=== PATIENT | male | born 1965 | race Caucasian/White ===

== ENCOUNTER 2018-04-27 16:44 | Observation (INO) ==
[2018-04-27] MEDS ORDERED: Sod Chloride 0.9% Inj 1,000 ML IV.SIG ONE (18:01)
[2018-04-27] MEDS ORDERED: Morphine Inj 4 MG/ML Vial IV.PUSH ONE ×2 (18:01→20:37)
[2018-04-27 18:55] LABS: Baso # (Auto) 0.2 th/mm3 (0.0-0.2); Baso % (Auto) 1.9 % (0.0-2.0); Eos % (Auto) 0.1 % (0.0-4.0); Hematocrit 48.3 % (39.0-51.0); Hemoglobin 15.9 gm/dL (13.0-17.0); Lymph # (Auto) 0.8 th/mm3 (1.0-4.8); Mean Corpuscular HGB Conc 32.9 % (32.0-36.0); Mean Corpuscular Hemoglobin 28.2 pg (27.0-34.0); Mean Corpuscular Volume 85.7 fL (80.0-100.0); Mean Platelet Volume 9.5 fL (7.0-11.0); Mono # (Auto) 0.4 th/mm3 (0.0-0.9); Mono % (Auto) 3.5 % (0.0-8.0); Neut # (Auto) 10.5 th/mm3 (1.8-7.7); Neut % (Auto) 87.5 % (16.0-70.0); Platelet Count 231 th/mm3 (150-450); Red Blood Count 5.63 mil/mm3 (4.50-5.90); Red Cell Distribution Width 12.3 % (11.6-17.2); White Blood Count 11.9 th/mm3 (4.0-11.0)
[2018-04-27 19:04] LABS: Chloride 104 meq/L (98-107); Sodium 136 meq/L (136-145)
[2018-04-27 19:07] LABS: Calcium 8.9 mg/dL (8.5-10.1)
[2018-04-27 19:08] LABS: Albumin 4.4 g/dL (3.4-5.0); Anion Gap 9 meq/L (5-15); Blood Urea Nitrogen 22 mg/dL (7-18); Carbon Dioxide 23.1 meq/L (21.0-32.0); Glucose,Random 98 mg/dL (74-106); Lipase 94 U/L (73-393); Magnesium 2.3 mg/dL (1.5-2.5)
[2018-04-27 19:11] LABS: Alanine Aminotransferase 70 U/L (12-78); Aspartate Aminotransferase 38 U/L (15-37); Glomerular Filtration Rate 79 mL/min (>89)
[2018-04-27 19:12] LABS: Total Protein 7.9 g/dL (6.4-8.2)
[2018-04-27 19:13] LABS: Alkaline Phosphatase 80 U/L (45-117)
--- NOTE | 2018-04-27 19:17 | ED ---
HPI General Chief Complaint: Abdominal Pain Stated Complaint: abd pain Xthis morning/vomiting Time Seen by Provider: 04/27/18 19:05 Source: patient and family Mode of arrival: ambulatory Limitations: no limitations History of Present Illness HPI narrative: 52-year-old male presents to the emergency department for grossly worsening generalized abdominal pain radiating to the right lower quadrant onset since 2 AM. One episode of vomiting bilious emesis no feculent emesis no coffee-ground emesis no hematemesis. No constipation or diarrhea. No fever mild chills. Some anorexia with decreased oral intake. Prior cholecystectomy 5 years ago and has had previous knee surgery. Patient takes no prescription medications other than had a leftover Lortab from dental work before and took a one-time Lortab without symptom. Patient has noted some discomfort with movement. No history of reported colitis diverticulitis and still has his appendix. No dysuria frequency or urgency. Patient has had previous kidney stone but states no flank pain or hematuria. Patient denies other concerns or complaints. Patient was placed on monitor IV access obtained specimens collected and sent for resulting denies any chest pain or shortness of breath or sweats. complaint: Reports abdominal pain Onset (ago): hour(s) Pain Consistency: constant Location: Reports diffuse Severity: moderate Severity scale (1-10): 5 Quality: Reports aching Radiation: Reports RLQ Migration to: Reports RLQ Relieving factors: nothing Exacerbating factors: movement Context: Denies foreign travel, possible food poisoning, sick contacts, recent antibiotic use, recent surgery/procedure, recent injury and history of similar episodes Associated symptoms: Reports nausea, vomiting (x1 bile), chills and anorexia; Denies diarrhea, fever, constipation, dysuria, hematemesis, hematochezia, melena , hematuria and syncope Treatments prior to arrival: Denies NSAIDs, prescription analgesics and antacids Related Data Home Medications Medication Instructions Recorded Confirmed No Known Home Medications 04/27/18 04/27/18 Allergies Allergy/AdvReac Type Severity Reaction Status Date / Time No Known Allergies Allergy Verified 04/27/18 17:07 Review of Systems ROS: all other systems reviewed are negative [facility] Medical History Medical History Patient denies medical problems (Acute) Surgical History Surgical History Hx of cholecystectomy (Acute) Hx of knee surgery (Acute) Social History Social History Substance History: No History of Abuse Second Hand Smoke Exposure: No Smoking Status: Never smoker How Often Do You Have a Drink Containing Alcohol: 2 to 3 times a week Recent Travel in [facility] within the Last 8 Weeks: No Recent Out of Country Travel within the Last 8 Weeks: No Immunization History Tetanus Immunization: Unsure Exam Narrative Exam Narrative: GENERAL: Well-nourished, well-developed patient. SKIN: Focused skin assessment warm/dry. HEAD: Normocephalic. EYES: No scleral icterus. No injection or drainage. NECK: Supple, trachea midline. No JVD or lymphadenopathy. CARDIOVASCULAR: Regular rate and rhythm without murmurs, gallops, or rubs. RESPIRATORY: Breath sounds equal bilaterally. No accessory muscle use. GASTROINTESTINAL: Abdomen soft, mildly diffusely tender with localizing to right lower quadrant without guarding or rebound, nondistended. MUSCULOSKELETAL: No cyanosis, or edema. BACK: Nontender without obvious deformity. No CVA tenderness. Course Initial Documented Vital Signs Temperature 97.9 F 04/27/18 17:03 Pulse Rate 65 04/27/18 17:03 Respiratory Rate 16 04/27/18 17:03 Blood Pressure 164/94 H 04/27/18 17:03 Pulse Oximetry 99 04/27/18 17:03 Last Documented Vital Signs Temperature 97.9 F 04/27/18 17:03 Pulse Rate 74 04/27/18 17:07 Respiratory Rate 14 04/27/18 17:07 Blood Pressure 148/87 H 04/27/18 17:07 Pulse Oximetry 95 04/27/18 17:07 Medical Decision Making [facility] Narrative Medical decision making narrative: 52-year-old male presents to the emergency department for grossly worsening generalized abdominal pain radiating to the right lower quadrant onset since 2 AM. One episode of vomiting bilious emesis no feculent emesis no coffee-ground emesis no hematemesis. No constipation or diarrhea. No fever mild chills. Some anorexia with decreased oral intake. Prior cholecystectomy 5 years ago and has had previous knee surgery. Patient takes no prescription medications other than had a leftover Lortab from dental work before and took a one-time Lortab without symptom. Patient has noted some discomfort with movement. No history of reported colitis diverticulitis and still has his appendix. No dysuria frequency or urgency. Patient has had previous kidney stone but states no flank pain or hematuria. Patient denies other concerns or complaints. Patient was placed on monitor IV access obtained specimens collected and sent for resulting denies any chest pain or shortness of breath or sweats. White count is minimally elevated with left shift chemistries urinalysis and CT abdomen pelvis have been ordered and patient has been ordered fluids pain medication and antiemetic. At 7:[address] abdomen pelvis is consistent with acute appendicitis no evidence of perforation or periappendiceal abscess 14 mm standing is noted; white count is 11,900 with 87% neutrophils bicarb is normal at 23 mild renal insufficiency with BUN of 22. Patient administered Zosyn has already received previously ordered morphine and Zofran; discussed with Dr Grant send to [facility] M/S to his service; patient and family informed of diagnosis based on his exam labs and positive CT abdomen pelvis for acute appendicitis with plan to transfer patient to [facility] for appendectomy with Dr. Grant, patient and family's questions have been answered to their satisfaction. Medical Screen Exam Complete: Yes Emergency Medical Condition: Yes Differential Diagnosis Differential Diagnosis: Abdominal pain, appendicitis, colitis, diverticulitis, atypical renal colic Medical Records Medical records reviewed: Yes I reviewed the patient's medical records. Lab Data Lab results reviewed: Yes I reviewed the patient's lab results. Result diagrams: 04/27/18 18:31 04/27/18 18:31 Lab Results 04/27/18 04/27/18 Range/Units 18:31 18:31 CBC w Diff Auto diff final WBC 11.9 H (4.0-11.0) th/mm3 RBC 5.63 (4.50-5.90) mil/mm3 Hgb 15.9 (13.0-17.0) gm/dL Hct 48.3 (39.0-51.0) % MCV 85.7 (80.0-100.0) fL MCH 28.2 (27.0-34.0) pg MCHC 32.9 (32.0-36.0) % RDW 12.3 (11.6-17.2) % Plt Count 231 (150-450) th/mm3 MPV 9.5 (7.0-11.0) fL Neut % (Auto) 87.5 H (16.0-70.0) % Lymph % (Auto) 7.0 L (9.0-44.0) % [place] % (Auto) 3.5 (0.0-8.0) % Eos % (Auto) 0.1 (0.0-4.0) % Baso % (Auto) 1.9 (0.0-2.0) % Neut # (Auto) 10.5 H (1.8-7.7) th/mm3 Lymph # (Auto) 0.8 L (1.0-4.8) th/mm3 [place] # (Auto) 0.4 (0.0-0.9) th/mm3 Eos # (Auto) 0.0 (0.0-0.4) th/mm3 Baso # (Auto) 0.2 (0.0-0.2) th/mm3 WBC Differential . Differential Comment . Sodium 136 (136-145) meq/L Potassium 4.6 (3.5-5.1) meq/L Chloride 104 (98-107) meq/L Carbon Dioxide 23.1 (21.0-32.0) meq/L Anion Gap 9 (5-15) meq/L BUN 22 H (7-18) mg/dL Creatinine 1.00 (0.60-1.30) mg/dL Estimated GFR 79 L (>89) mL/min Random Glucose 98 (74-106) mg/dL Calcium 8.9 (8.5-10.1) mg/dL Magnesium 2.3 (1.5-2.5) mg/dL Total Bilirubin 1.1 H (0.2-1.0) mg/dL AST 38 H (15-37) U/L ALT 70 (12-78) U/L Alkaline Phosphatase 80 (45-117) U/L Total Protein 7.9 (6.4-8.2) g/dL Albumin 4.4 (3.4-5.0) g/dL Lipase 94 (73-393) U/L Imaging Data My impression: reviewed by me and discussed with surgeon radiologist's reading Radiologist's impression: Abdomen/Pelvis CT 04/27/18 18:01 CONCLUSION: 1. Findings consistent with acute appendicitis. No evidence for perforation or periappendiceal abscess at this time. 2. Prominent diffusely decreased hepatic attenuation consistent with prominent hepatic steatosis. ECG Data EKG Prior to Arrival: No Attestation: I personally reviewed and interpreted this ECG as follows: (EKG: Normal sinus rhythm rate 86 normal axis and intervals no acute ST elevation injury pattern or ectopy noted.) Discharge Plan Discharge Disposition Patient Disposition: ED Admit(ED Internal Use Only) Discharge Condition Condition: Stable Discharge Order Discharge Orders: ED Use Only Admit Order (Routine); Ordered 04/27/18 Ordered By: Jaky Morin Discharge Details Diagnosis: Acute appendicitis Physicians Team ED Provider: Jaky Morin Primary Care Provider: Anant Bills Rxs /Orders / Referrals /Forms Prescriptions: No Action No Known Home Medications RF: 0 Status ED Status: With Doctor
[2018-04-27 19:18] LABS: Potassium 4.6 meq/L (3.5-5.1)
--- NOTE | 2018-04-27 19:18 | CT ---
EXAM DATE: 04/27/2018 7:12 PM EST AGE/SEX: 52 years / Male INDICATIONS: Diffuse abdomen pain, greater on the right side with nausea and vomiting. CLINICAL DATA: This is the patient's initial encounter. Patient reports that signs and symptoms have been present for 1 day and indicates a pain score of 10/10. MEDICAL/SURGICAL HISTORY: None. None. ORAL CONTRAST: No oral contrast ingested. RADIATION DOSE: 19.75 CTDI (mGy) COMPARISON: No prior exams available for comparison. TECHNIQUE: Multiple contiguous axial images were obtained through the abdomen and pelvis following b olus infusion of 95 ml Omnipaque 350 (iohexol) nonionic water-soluble contrast as a single exam dos e. No oral contrast ingested. Using automated exposure control and adjustment of the mA and/or kV ac cording to patient size, radiation dose was kept as low as reasonably achievable to obtain optimal di agnostic quality images. DICOM format image data is available electronically for review and comparis on. FINDINGS: LOWER LUNGS: The visualized lower lungs are clear. LIVER: Prominent diffusely decreased hepatic attenuation without significant volume loss. Gallbladde r is surgically absent. No significant biliary ductal dilatation. SPLEEN: Homogeneous density without enlargement. PANCREAS: Unremarkable without mass or calcification. KIDNEYS: Kidneys demonstrate symmetrical enhancement and are symmetrical in size without evidence fo r radiopaque renal calculi or hydronephrosis. Small subcentimeter hypodense cystic lesions are too sm all to fully characterize bilaterally. ADRENAL GLANDS: Unremarkable. AORTA: Katheryn-aneurysmal. BOWEL/MESENTERY: Appendix is dilated measuring up to 14 mm with very mild periappendiceal stranding. No regional drainable fluid collections. Bowel loops are otherwise unremarkable without evidence for obstruction. No free fluid or drainable fluid collections. No pneumatosis or free air. ABDOMINAL WALL: Intact. RETROPERITONEUM: No evidence of adenopathy in the retrocrural, para-aortic, or deep pelvic regions. BLADDER: Contours are smooth. REPRODUCTIVE: No abnormal masses or calcifications seen. BONY STRUCTURES: Unremarkable. CONCLUSION: 1. Findings consistent with acute appendicitis. No evidence for perforation or periappendiceal absce ss at this time. 2. Prominent diffusely decreased hepatic attenuation consistent with prominent hepatic steatosis. Electronically signed by: Emir Alanis MD Board Certified Radiologist 04/27/2018 7:17 PM EST
[2018-04-27] MEDS ORDERED: Piperacil/Tazo 4.5 GM Premix 4.5 GM/100 ML BAG IV.SIG SCH (19:30)
[2018-04-27] MEDS: Sod Chloride 0.9% Inj 1,000 ML IV.CONT SCH (19:47)
[2018-04-27 20:42] LABS: Bilirubin,Urine Negative (Negative); Clarity,Urine Clear (Clear); Color,Urine Yellow (Yellw/Straw); Glucose,Urine (UA) Negative (Negative); Leukocyte Esterase,Urine Negative (Negative); Nitrite,Urine Negative (Negative); PH,Urine 5.5 (5.0-8.5); Specific Gravity,Urine Less/Equal 1.005 (1.002-1.035); Urobilinogen,Urine 0.2 mg/dL (Less than 2)
[2018-04-27 20:47] LABS: Squamous Epithelial Cell,Urine 0-5 /hpf (0-5)
[2018-04-28] MEDS ORDERED: Morphine Inj 4 MG/ML Vial IV.PUSH ONE (01:32)
[2018-04-28] MEDS ORDERED: Sodium Chlor 0.9% Inj 500 ML IV.CONT ONE (03:30)
[2018-04-28] MEDS ORDERED: Chlorhexidine Gluconate 2% 1 Pack (2 Cloths) TOPICAL ONE (03:30)
[2018-04-28] MEDS: Piperacil/Tazo 4.5 GM Premix 4.5 GM/100 ML BAG IV.SIG SCH ×3 (06:16→20:45)
[2018-04-28] MEDS: HYDROmorphone PF Inj 2 MG/ML Vial IV.PUSH SCH ×4 (08:34→20:45)
--- NOTE | 2018-04-28 08:40 | P.HPGS ---
History of Present Illness Service: General Surgery Primary Care Physician: Anant Bills MD Chief Complaint: Abdominal pain History of Present Illness: This is a 52 with no significant past medical history who reported to the emergency department with right lower quadrant pain that began around 2 AM on Tuesday. He does report associated nausea and vomiting. He does report associated fevers and chills. The patient had a CT abdomen/pelvis with findings consistent with acute appendicitis. The patient's white blood cell count is 11.9. A General Surgery admission is been requested. - Diagnosis (1) Acute appendicitis Review of Systems All other systems reviewed negative except as stated in [facility] - History History Provided By: Patient - Medical History Medical History: Medical History (Last Reviewed 04/28/18 @ 08:37 by ALEXIA Rendon) Patient denies medical problems - Surgical History Surgical History: Surgical History (Last Reviewed 04/28/18 @ 08:37 by ALEXIA Rendon) Hx of cholecystectomy Hx of knee surgery - Tobacco History Second Hand Smoke Exposure: No Smoking Status: Never smoker - Alcohol History How Often Do You Have a Drink Containing Alcohol: 2 to 3 times a week - Substance Use History Substance History: No History of Abuse - Travel History Recent Travel in the [place] Within the Last 8 Weeks: No Recent Travel Out of the Country Within the Last 8 Weeks: No - Immunization History Tetanus Immunization: Unsure Hx Influenza Vaccine This Season: No Medications and Allergies Allergies Allergy/AdvReac Type Severity Reaction Status Date / Time No Known Allergies Allergy Verified 04/27/18 17:07 Home Medications Medication Instructions Recorded Confirmed Type No Known Home Medications 04/27/18 04/27/18 History Active Medications: Active Medications Hydromorphone HCl (Dilaudid Pf Inj) 1 mg IV.PUSH Q4H CEASAR Last Admin: 04/28/18 08:34 Dose: 1 mg Sodium Chloride (Ns Inj) 1,000 mls @ 125 mls/hr IV.CONT .Q8H CEASAR Last Admin: 04/27/18 19:47 Dose: 125 mls/hr Lactated Ringer's (Lr 1000 Ml Inj) 1,000 mls @ 30 mls/hr IV.CONT .Q24H ONE Stop: 04/29/18 03:29 Sodium Chloride (Ns Inj) 500 mls @ 30 mls/hr IV.CONT .[id number] ONE Stop: 04/28/18 20:09 Piperacillin/Tazobactam/Dextrose (Zosyn 4.5 Gm Premix) 4.5 gm in 100 mls @ 200 mls/hr IV.SIG Q8H [facility] Last Infusion: 04/28/18 08:34 Dose: Infused Sodium Chloride (Ns Flush) 2 ml IV.FLUSH PRN PRN PRN Reason: FLUSH AFTER USING IV ACCESS Exam Vital signs: Vital Signs 04/27/18 17:03 04/27/18 17:07 04/27/18 19:52 Temperature 97.9 F Pulse Rate 65 74 64 Respiratory Rate 16 14 15 Blood Pressure 164/94 H 148/87 H 149/82 H Pulse Oximetry 99 95 98 04/27/18 20:51 04/28/18 01:23 04/28/18 02:28 Temperature 98.8 F 99.7 F H Pulse Rate 91 H 83 93 H Respiratory Rate 18 15 18 Blood Pressure 148/77 H 146/93 H 156/85 H Pulse Oximetry 98 97 99 Intake & Output 04/27/18 04/28/18 04/28/18 18:59 06:59 18:59 Intake Total 1100 / 1100 100 / 100 Balance 1100 / 1100 100 / 100 Weight 89.5 kg 89.5 kg Intake: IV 1100 / 1100 100 / 100 Zosyn 4.5 GM Premix 4.5 gm In 100 / 100 100 / 100 100 ml @ 200 mls/hr IV.SIG Q8H [facility] Rx#:[id number] NS Inj 1,000 ML @ Wide Open IV. 1000 / 1000 SIG BOLUS ONE Rx#:[id number] Oral 0 / 0 Other: Date of Last Bowel Movement 04/27/18 Weight On Admission 90.1 kg Narrative: GENERAL: Pleasant 52 year old male resting in bed in no acute distress. SKIN: Warm and dry. HEAD: Atraumatic. Normocephalic. EYES: Pupils equal and round. No scleral icterus. No injection or drainage. ENT: No nasal bleeding or discharge. Mucous membranes pink and moist. NECK: Trachea midline. CARDIOVASCULAR: Regular rate and rhythm. RESPIRATORY: No accessory muscle use. Clear to auscultation. Breath sounds equal bilaterally. GASTROINTESTINAL: Abdomen soft, mildly distended. Tender in RLQ to palpation. Small reducible umbilical hernia. MUSCULOSKELETAL: Extremities without clubbing, cyanosis, or edema. No obvious deformities. NEUROLOGICAL: Awake and alert. No obvious cranial nerve deficits. Motor grossly within normal limits. Five out of 5 muscle strength in the arms and legs. Normal speech. PSYCHIATRIC: Appropriate mood and affect; insight and judgment normal. Results - Labs 04/27/18 18:31 04/27/18 18: Laboratory Results CBC w Diff Auto diff final 04/27/18 18: WBC 11.9 th/mm3 (4.0-11.0) H 04/27/18 18: RBC 5.63 mil/mm3 (4.50-5.90) 04/27/18 18: Hgb 15.9 gm/dL (13.0-17.0) 04/27/18 18: Hct 48.3 % (39.0-51.0) 04/27/18 18: MCV 85.7 fL (80.0-100.0) 04/27/18 18: MCH 28.2 pg (27.0-34.0) 04/27/18 18: MCHC 32.9 % (32.0-36.0) 04/27/18 18: RDW 12.3 % (11.6-17.2) 04/27/18 18: Plt Count 231 th/mm3 (150-450) 04/27/18 18: MPV 9.5 fL (7.0-11.0) 04/27/18 18: Neut % (Auto) 87.5 % (16.0-70.0) H 04/27/18 18: Lymph % (Auto) 7.0 % (9.0-44.0) L 04/27/18 18: [place] % (Auto) 3.5 % (0.0-8.0) 04/27/18 18: Eos % (Auto) 0.1 % (0.0-4.0) 04/27/18 18: Baso % (Auto) 1.9 % (0.0-2.0) 04/27/18 18: Neut # (Auto) 10.5 th/mm3 (1.8-7.7) H 04/27/18 18: Lymph # (Auto) 0.8 th/mm3 (1.0-4.8) L 02/14/19 18:31 [place] # (Auto) 0.4 th/mm3 (0.0-0.9) 04/27/18 18:31 Eos # (Auto) 0.0 th/mm3 (0.0-0.4) 04/27/18 18:31 Baso # (Auto) 0.2 th/mm3 (0.0-0.2) 04/27/18 18:31 WBC Differential . 04/27/18 18:31 Differential Comment . 04/27/18 18:31 Sodium 136 meq/L (136-145) 04/27/18 18:31 Potassium 4.6 meq/L (3.5-5.1) 04/27/18 18:31 Chloride 104 meq/L (98-107) 04/27/18 18:31 Carbon Dioxide 23.1 meq/L (21.0-32.0) 04/27/18 18:31 Anion Gap 9 meq/L (5-15) 04/27/18 18:31 BUN 22 mg/dL (7-18) H 04/27/18 18:31 Creatinine 1.00 mg/dL (0.60-1.30) 04/27/18 18:31 Estimated GFR 79 mL/min (>89) L 04/27/18 18:31 Random Glucose 98 mg/dL (74-106) 04/27/18 18:31 Calcium 8.9 mg/dL (8.5-10.1) 04/27/18 18:31 Magnesium 2.3 mg/dL (1.5-2.5) 04/27/18 18:31 Total Bilirubin 1.1 mg/dL (0.2-1.0) H 04/27/18 18:31 AST 38 U/L (15-37) H 04/27/18 18:31 ALT 70 U/L (12-78) 04/27/18 18:31 Alkaline Phosphatase 80 U/L (45-117) 04/27/18 18:31 Total Protein 7.9 g/dL (6.4-8.2) 04/27/18 18:31 Albumin 4.4 g/dL (3.4-5.0) 04/27/18 18:31 Lipase 94 U/L (73-393) 04/27/18 18:31 Urine Color Yellow (Yellw/Straw) 04/27/18 19:55 Urine Clarity Clear (Clear) 04/27/18 19:55 Urine pH 5.5 (5.0-8.5) 04/27/18 19:55 Ur Specific [place] Less/equal 1.005 (1.002-1.035) 04/27/18 19:55 Urine Protein Negative mg/dL (Neg-Trace) 04/27/18 19:55 Urine Glucose (UA) Negative mg/dL (Negative) 04/27/18 19:55 Urine Ketones 80 or greater mg/dL (Negative) H 04/27/18 19:55 Urine Occult Blood Negative (Negative) 04/27/18 19:55 Urine Nitrate Negative (Negative) 04/27/18 19:55 Urine Bilirubin Negative (Negative) 04/27/18 19:55 Urine Urobilinogen 0.2 mg/dL (Less than 2) 04/27/18 19:55 Ur Leukocyte Esterase Negative (Negative) 04/27/18 19:55 Ur Squamous Epith Cells 0-5 /hpf (0-5) 04/27/18 19:55 Micro UA Comment Culture not ind 04/27/18 19:55 Ur Microscopic Review Microscopic reviewed 04/27/18 19:55 Urine Culture Comments Culture not ind 04/27/18 19:55 Impressions Abdomen/Pelvis CT 04/27/18 18:01 CONCLUSION: 1. Findings consistent with acute appendicitis. No evidence for perforation or periappendiceal abscess at this time. 2. Prominent diffusely decreased hepatic attenuation consistent with prominent hepatic steatosis. - Imaging Imaging: ITS Impressions Abdomen/Pelvis CT 04/27/18 18:01 CONCLUSION: 1. Findings consistent with acute appendicitis. No evidence for perforation or periappendiceal abscess at this time. 2. Prominent diffusely decreased hepatic attenuation consistent with prominent hepatic steatosis. CT scan - abdomen: image reviewed Caprini VTE Risk Assessment Caprini VTE Risk Assessment: No/Low Risk (score <= 1) VTE Pharmacological Exception Reason: Documented (Going to OR today ) Caprini Risk Assessment Model: Point Value = 1 Point Value = 2 Point Value = 3 Point Value = 5 Age 41-60 Minor surgery BMI > 25 kg/m2 Swollen legs Varicose veins or History of unexplained or recurrent spontaneous Oral contraceptives or hormone replacement Sepsis (< 1 month) Serious lung disease, including pneumonia (< 1 month) Abnormal pulmonary function Acute myocardial infarction Congestive heart failure (< 1 month) History of inflammatory bowel disease Medical patient at bed rest Age 61-74 Arthroscopic surgery Major open surgery (> 45 min) Laparoscopic surgery (> 45 min) Malignancy Confined to bed (> 72 hours) Immobilizing plaster cast Central venous access Age >= 75 History of VTE Family history of VTE Factor V Leiden Prothrombin [id number] Lupus anticoagulant Anticardiolipin antibodies Elevated serum homocysteine Heparin-induced thrombocytopenia Other congenital or acquired thrombophilia Stroke (< 1 month) Elective arthroplasty Hip, pelvis, or leg fracture Acute spinal cord injury (< 1 month) Prophylaxis Regimen: Total Risk Factor Score Risk Level Prophylaxis Regimen 0-1 Low Early ambulation 2 Moderate Order ONE of the following: *Sequential Compression Device (SCD) *Heparin 5000 units SQ BID 3-4 Higher Order ONE of the following medications: *Heparin 5000 units SQ TID *Enoxaparin/Lovenox 40 mg SQ daily (WT < 150 kg, CrCl > 30 mL/min) *Enoxaparin/Lovenox 30 mg SQ daily (WT < 150 kg, CrCl > 10-29 mL/min) *Enoxaparin/Lovenox 30 mg SQ BID (WT < 150 kg, CrCl > 30 mL/min) AND/OR *Sequential Compression Device (SCD) 5 or more Highest Order ONE of the following medications: *Heparin 5000 units SQ TID (Preferred with Epidurals) *Enoxaparin/Lovenox 40 mg SQ daily (WT < 150 kg, CrCl > 30 mL/min) *Enoxaparin/Lovenox 30 mg SQ daily (WT < 150 kg, CrCl > 10-29 mL/min) *Enoxaparin/Lovenox 30 mg SQ BID (WT < 150 kg, CrCl > 30 mL/min) AND *Sequential Compression Device (SCD) Assessment and Plan - Assessment (1) Acute appendicitis Code(s): K35.80 - Unspecified acute appendicitis Status: Acute Qualifiers: Acute appendicitis type: with localized peritonitis Appendicitis gangrene presence: without gangrene Appendicitis perforation presence: without perforation Appendicitis abscess presence: without abscess Qualified Code(s) : K35.30 - Acute appendicitis with localized peritonitis, without perforation or gangrene Plan: 52 year old male with acute appendicitis -Plan for OR today -Obtain consents -Procedure explained in detail including risks and benefits -All questions answered -NPO -Continue IVF and antibiotics - Plan Discussed Condition With: Dr. Grey Mr. Clement - Attending Attestation I certify and attest that I personally examined the patient. [employer]IPPER documented our visit. Acute appendicitis. DW patient and agrees to immediate appendectomy. MELY GREY MD FACS
[2018-04-28] MEDS: Sod Chloride 0.9% Inj 1,000 ML IV.CONT SCH ×3 (09:00→19:45)
[2018-04-28] MEDS ORDERED: Bupivacaine/Epinephrine Inj 0.25% 50 ML Vial ONE (11:21)
[2018-04-28] MEDS ORDERED: Lidocaine PF 1% Inj 5 ML Syringe INFILTRATN ONE (12:24)
[2018-04-28] MEDS ORDERED: Ketorolac Inj 30 MG/ML (IVP) Vial IV.PUSH ONE (12:24)
[2018-04-28] MEDS ORDERED: Neostigmine Inj 5 MG/5 ML Syringe IV.PUSH ONE (12:24)
[2018-04-28] MEDS ORDERED: Phenylephrine/NS 1000 MCG/10ML Syringe IV.PUSH ONE (12:24)
[2018-04-28] MEDS ORDERED: Glycopyrrolate Inj 1 MG/5 ML Syringe IV.PUSH ONE (12:24)
[2018-04-28] MEDS ORDERED: Ketorolac Inj 30 MG/ML (IVP) Vial IV.PUSH PRN (14:07)
[2018-04-28] MEDS ORDERED: fentaNYL Citrate Inj 100 MCG/2 ML Ampul ONE (14:24)
--- NOTE | 2018-04-28 14:44 | MP ---
cc: Shawn Grey MD,Krish Santos MD DATE OF OPERATION: 04/28/2018 PREOPERATIVE DIAGNOSES: Acute appendicitis and umbilical hernia. POSTOPERATIVE DIAGNOSES: Acute appendicitis and umbilical hernia. PROCEDURE PERFORMED: 1. Laparoscopic appendectomy. 2. Primary repair of umbilical hernia. SURGEON: Shawn Grey MD ANESTHESIA: General endotracheal. COMPLICATIONS: None. INDICATIONS FOR PROCEDURE: Mr. Rouse is a pleasant 52-year-old gentleman who came into [facility] ER last night complaining of right lower quadrant abdominal pain. He was worked up and found to have appendicitis. Dr. Grant was operations developer for surgery and he was consulted to evaluate the patient. Dr. Grant recommended immediate appendectomy. Unfortunately, [facility] operating room was closed for the evening and the patient had to be brought to [facility]. Apparently, he was not transferred to the early this morning. Dr. Grant was unavailable by the time the patient was transferred. He asked me if I could see the patient and perform the surgery immediately. Risks and benefits of laparoscopic and possible open appendectomy were discussed with him and his and they were agreeable. DETAILS OF PROCEDURE: The patient was identified, brought to the operating room, placed supine on the operating table. After adequate general endotracheal anesthesia was achieved, the abdomen was prepped and draped in standard surgical fashion. Infraumbilical space was anesthetized with 0.25% Marcaine. A supraumbilical incision was made. Dissection was carried down through subcutaneous tissue to the umbilical hernia. Umbilical hernia was then opened. A finger was then placed in the peritoneal cavity without difficulty. Blunt balloon trocar was inserted, and the abdomen was insufflated to 15 mmHg using CO2 gas. Next, two 5 mm trocars were placed in the lower midline under direct vision after anesthetizing the skin and subcutaneous tissue with 0.25% Marcaine. Attention was directed to the right lower quadrant where the tip of the appendix was identified. Appendix was seen to be traversing deep posteriorly. There was terminal ileum draped across it and this was meticulously dissected off of it using blunt and hydrodissection. We had to place a third 5 mm port in the right lower quadrant in order to retract the terminal ileum medially. Once we did this, we were able to see the appendix. The appendix was then followed down into a retroperitoneal position where it looped back up and then to the base of the cecum. Dissection was quite difficult because the appendix traversed deep posteriorly and we had to follow it way down with limited visualization due to the patient's obesity and the fact the terminal ileum was draped across it. We were able to free the appendix up with Harmonic dissection and blunt dissection and hydrodissection. The appendiceal artery was encountered. We briefly lost control of it, but then regained control of it and ligated it with the Harmonic scalpel. Once we got down and mobilized the appendix up, we were able to get it all the way to the base of the cecum. Once the cecal base was achieved, two 2-0 PDS Endoloops were placed on the proximal appendix at the junction of the cecum. Distal appendix was then transected with the Harmonic scalpel. Appendix was placed into an Endopouch bag and brought out through the supraumbilical port. The appendix was sent to Pathology for analysis. Next, the abdominal cavity was rinsed out with 1 liter of warm saline solution. Appendiceal mesentery was carefully inspected and there was no bleeding noted. Stump was inspected and the Endoloops were tested and found to be intact without any slippage and no leakage of stool from the stump. All irrigant was removed from the abdominal cavity. The omentum was then placed into the right lower quadrant over the stump. Abdomen was then carefully desufflated. The umbilical hernia was primarily repaired using a 0 Prolene interrupted x2. The umbilical stalk was then tacked down to the abdominal wall using a 2-0 Vicryl and subcutaneous tissue and skin was closed with a 4-0 Vicryl. The patient tolerated the procedure well and was awakened and brought to the recovery room in stable condition. Shawn MD EDUAR Allen/clari , 02:12 PM , 02:22 PM
--- NOTE | 2018-04-28 14:52 | ECG ---
Date Performed: 04/27/2018 Time Performed: 19:18:30 PTAGE: 52 years EKG: Sinus rhythm POSSIBLE LEFT ATRIAL ENLARGEMENT BORDERLINE ECG Since the PREVIOUS TRACING , no significant change noted PREVIOUS TRACIN03/19/2013 23.27 DOCTOR: Anat Martin Interpretating Date/Time 04/28/2018 14:45:34
[2018-04-29] MEDS: Sod Chloride 0.9% Inj 1,000 ML IV.CONT SCH ×2 (03:45→12:01)
[2018-04-29] MEDS: Piperacil/Tazo 4.5 GM Premix 4.5 GM/100 ML BAG IV.SIG SCH ×2 (04:00→12:00)
[2018-04-29] MEDS: HYDROmorphone PF Inj 2 MG/ML Vial IV.PUSH SCH ×4 (04:01→12:01)
[2018-04-29 05:19] VITALS: RESP 18
[2018-04-29 08:34] VITALS: O2SAT 96
[2018-04-29 13:06] VITALS: BP 115/63; PULSE 81; TEMP 97.5
--- NOTE | 2018-04-29 14:11 | P.DS ---
Date of admission: 04/27/18 19:45 Primary care physician: Anant Bills MD Brief History from admission: This is a 52 with no significant past medical history who reported to the emergency department with right lower quadrant pain that began around 2 AM on Tuesday. He does report associated nausea and vomiting. He does report associated fevers and chills. The patient had a CT abdomen/pelvis with findings consistent with acute appendicitis. The patient's white blood cell count is 11.9. A General Surgery admission is been requested. Patient update on day of discharge: Patient is postoperative day 1 status post laparoscopic appendectomy and repair of umbilical hernia. His pain is well controlled. He is eating and drinking and passing flatus. He has been passing large amounts of urine. He has been up walking around. He desires discharge home. His incisions are all healing well. There is a dressing in the umbilicus which is dry. There is no erythema , ecchymosis or drainage. His extremities are nonedematous. DS: Summary Hospital Course: Patient was admitted to the hospital with a diagnosis of acute appendicitis. He underwent laparoscopic appendectomy. He is recovered uneventfully. He had his umbilical hernia repaired as well. He desires discharge. His is at his bedside and would like to take him home. He is tolerating oral intake, emptying his bladder well, passing flatus. - Time Spent with Patient Total time spent providing and/or coordinating discharge services: Less than 30 minutes Exam Vital signs: Vital Signs 04/28/18 14:16 04/28/18 14:30 04/28/18 14:45 Temperature 101.2 F H Pulse Rate 100 H 100 H 98 H Respiratory Rate 22 22 22 Blood Pressure 124/80 122/80 138/77 Pulse Oximetry 97 96 94 L 04/28/18 15:00 04/28/18 16:00 04/28/18 20:39 Temperature 98.5 F 98.8 F 98.5 F Pulse Rate 89 88 80 Respiratory Rate 12 20 18 Blood Pressure 128/62 128/69 141/87 H Pulse Oximetry 94 L 92 L 98 04/28/18 23:46 04/29/18 04:31 04/29/18 04:58 Temperature 98.1 F 97.7 F Pulse Rate 82 65 Respiratory Rate 16 17 18 Blood Pressure 119/75 121/66 Pulse Oximetry 96 95 04/29/18 08:00 04/29/18 12:00 Temperature 98.3 F 97.5 F L Pulse Rate 86 81 Respiratory Rate 18 18 Blood Pressure 110/68 115/63 Pulse Oximetry 96 96 Intake & Output 04/28/18 04/29/18 04/29/18 18:59 06:59 18:59 Intake Total 2550 / 2550 2910 / 2910 1100 / 1100 Output Total 100 / 100 Balance 2450 / 2450 2910 / 2910 1100 / 1100 Weight 88.2 kg Intake: IV 2450 / 2450 1950 / 1950 1100 / 1100 LR 1000 mL Inj 1,000 ML @ 30 1000 / 1000 mls/hr IV.CONT .Q24H ONE Rx#: [id number] NS Inj 1,000 ML @ 125 mls/hr IV 1250 / 1250 1750 / 1750 1000 / 1000 .CONT .Q8H CEASAR Rx#:[id number] Zosyn 4.5 GM Premix 4.5 gm In 200 / 200 200 / 200 100 / 100 100 ml @ 200 mls/hr IV.SIG Q8H CEASAR Rx#:[id number] Oral 960 / 960 Anesthesia Amount 100 / 100 Output: Estimated Blood Loss 100 / 100 Other: # Voids 4 4 Date of Last Bowel Movement 04/27/18 04/26/18 # Bowel Movements 0 Results Procedures completed during hospitalization: Laparoscopic appendectomy, repair umbilical hernia Pending studies at discharge: Pending at discharge 04/28/18 15:01 Surgical [PTH] Routine - Impressions ITS Impressions Abdomen/Pelvis CT 04/27/18 18:01 CONCLUSION: 1. Findings consistent with acute appendicitis. No evidence for perforation or periappendiceal abscess at this time. 2. Prominent diffusely decreased hepatic attenuation consistent with prominent hepatic steatosis. Discharge Plan - Discharge Disposition Patient Disposition: Discharge Home - Discharge Condition Condition: Stable - Discharge Order Discharge Orders: Discharge Order (Routine); Ordered 04/29/18 Ordered By: Morgan Haro ED Use Only Admit Order (Routine); Ordered 04/27/18 Ordered By: Jaky Morin - Physicians Team Primary Care Provider: Anant Bills Attending Provider: Krish Grant
== END 2018-04-29 15:26 | disposition home or self-care (01) ==
LOC: PHED 16:44 → INTOOBSV 19:45 → PHEDH 19:45 → N06 04-28 02:05
PROVIDERS: ADMIT Surgery; ATTEND Surgery
PROC: LAPAPPY (ICD-10-PCS; 2018-04-28 12:24)
DX: R94.31 Abnormal electrocardiogram [ECG] [EKG]; K42.9 Umbilical hernia without obstruction or gangrene; Z87.442 Personal history of urinary calculi; K76.0 Fatty (change of) liver, not elsewhere classified; Z87.891 Personal history of nicotine dependence; K35.30 Acute appendicitis with localized peritonitis, without perforation or gangrene
CPT/HCPCS: 74177; 80053; 81001; 83690; 83735; 85025; 88304; 88305; 90761; 90774; 90775; 93005; 96361; 96365; 96366; 96374; 96375; 99285; C8952; G0378; J0131; J1100; J1170; J1885; J2270; J2370; J2405; J2543; J2704; J2710; J3010; J7030; J7120; Q9967